=== PATIENT | female | born 1960 | race Hispanic/Latino ===

== ENCOUNTER 2022-03-06 20:30 | Inpatient (IN) | payer OTHER ==
[~2022-03-06] VITALS: Ht 162.6 cm; Wt 70.8 kg
[2022-03-06 21:02] LABS: BASOPHILS % (AUTO) 0.3 % (0.0-5.0); EOSINOPHILS % (AUTO) 0.7 % (0.0-8.0); HEMATOCRIT 34.1 % (36-48); LYMPHOCYTES % (AUTO) 8.5 % (21.0-51.0); MEAN CORPUSCULAR VOLUME 79.5 fL (79-99); MONOCYTES % (AUTO) 7.8 % (3.0-13.0); NEUTROPHILS % (AUTO) 81.1 % (40.0-77.0); PLATELET COUNT (AUTO) 126 K/uL (130-400); RED BLOOD CELL COUNT(AUTO) 4.29 MIL/uL (4.00-5.50); RED CELL DISTRIBUTION WIDTH 14.5 % (11.0-15.5); WHITE BLOOD COUNT (AUTO) 7.1 K/uL (4.8-10.8)
[2022-03-06 21:04] LABS: APPEARANCE,URINE Clear (CLEAR); BILIRUBIN,URINE Negative (NEGATIVE); COLOR,URINE Yellow (YELLOW); GLUCOSE, URINE (UA) 500 mg/dL (NEGATIVE); KETONES,URINE Negative (NEGATIVE); LEUKOCYTE ESTERASE ,URINE Trace (NEGATIVE); NITRATE,URINE Negative (NEGATIVE); OCCULT BLOOD,URINE Large (NEGATIVE); PROTEIN,URINE POS 2+ mg/dL (NEGATIVE)
[2022-03-06 21:13] LABS: BACTERIA,URINE Few /HPF (None Seen); MUCUS,URINE Few LPF (None Seen); RBC,URINE 26-50 /HPF (0-1); SQUAMOUS EPITHELIAL CELL,UR Few /HPF (0-2)
[2022-03-06 21:20] LABS: INR 1.01 (0.85-1.15)
[2022-03-06 21:21] LABS: CREATININE 0.9 mg/dL (0.5-1.5); POTASSIUM 3.9 mmol/L (3.5-5.1)
[2022-03-06 21:22] LABS: PARTIAL THROMBOPLASTIN TIME 27.9 SEC (26.3-35.5)
[2022-03-06 21:30] LABS: ALBUMIN 2.2 g/dL (3.5-5.0); BILIRUBIN,TOTAL 1.2 mg/dL (0.2-1.0); TOTAL PROTEIN, SERUM 7.3 g/dL (6.0-8.3)
[2022-03-06] MEDS ORDERED: PANTOPRAZOLE 40 MG/VIAL IVP ONE (22:00)
[2022-03-06] MEDS ORDERED: ONDANSETRON 4MG INJ IVP ONE (22:00)
[2022-03-06] MEDS ORDERED: ACETAMINOPHEN 500 MG TABLET PO ONE (22:00)
[2022-03-06] MEDS ORDERED: 0.9%NACL 1000ML 1,000 ML IV ONE ×2 (22:00→23:30)
[2022-03-06] MEDS ORDERED: FAMOTIDINE 20MG VIAL IV ONE (22:00)
[2022-03-06] MEDS ORDERED: ZOSYN 3.375GM +NS 50ML IV ONE (22:00)
[2022-03-06 22:12] LABS: ABG HCO3 23.1 mmol/L (21.0-28.0); ABG OXYGEN SATURATION 87.8 % (95.0-99.0); ABG PCO2 36 mmHg (32-45)
[2022-03-06 22:51] LABS: ABG BASE EXCESS -2.5 mmol/L (-2.0-3.0); ABG HCO3 22.1 mmol/L (21.0-28.0); ABG OXYGEN SATURATION 87.9 % (95.0-99.0); ABG PCO2 38 mmHg (32-45)
[2022-03-06] MEDS ORDERED: METOCLOPRAMIDE 10 MG/2 ML VIAL IM ONE (23:30)
[2022-03-06] MEDS ORDERED: INSULIN HUMULIN R 100 UNIT/ML 3ML IV ONE (23:45)
[2022-03-07] MEDS ORDERED: INSULIN HUMULIN R 100 UNIT/ML 3ML IV ONE
[2022-03-07] MEDS: 0.9%NACL 1000ML 1,000 ML IV SCH ×3 (02:00→12:17)
[2022-03-07] MEDS ORDERED: ACETAMINOPHEN 325 MG TAB PO PRN (02:00)
[2022-03-07] MEDS ORDERED: ONDANSETRON 4MG INJ IV PRN (02:00)
[2022-03-07] MEDS ORDERED: MORPHINE 2 MG SYG IV PRN (02:00)
[2022-03-07] MEDS ORDERED: SITA1TAB6 PO (04:50)
[2022-03-07] MEDS ORDERED: ASPI-1443 PO (04:50)
[2022-03-07] MEDS ORDERED: LOSA25TA41 PO ×2 (04:50→05:14)
[2022-03-07] MEDS ORDERED: BUSP15 PO (04:50)
[2022-03-07] MEDS ORDERED: ATOR40TA71 PO (05:14)
[2022-03-07] MEDS ORDERED: SERT-440 PO (05:14)
[2022-03-07 05:26] VITALS: BP 123/69
[2022-03-07] MEDS: ZOSYN 3.375GM+NS 50ML 50 ML IV SCH ×3 (05:34→21:19)
[2022-03-07 06:14] LABS: INR 1.05 (0.85-1.15); PROTHROMBIN TIME 11.4 SEC (9.6-11.6)
[2022-03-07 06:15] LABS: PARTIAL THROMBOPLASTIN TIME 26.5 SEC (26.3-35.5)
[2022-03-07 08:00] VITALS: BP 123/63
[2022-03-07] MEDS: FAMOTIDINE 20MG VIAL IV SCH ×2 (08:27→21:19)
[2022-03-07 12:00] VITALS: BP 141/75
[2022-03-07] MEDS ORDERED: GADOTERATE MEGLUMINE 10 MMOL/20 ML VIAL IV ONE (14:26)
[2022-03-07 16:00] VITALS: BP 141/63
[2022-03-07] MEDS: INSULIN HUMULIN R 100 UNIT/ML 3ML SQ SCH ×2 (16:38→21:15)
[2022-03-07 20:08] VITALS: BP 139/73
[2022-03-07] MEDS: SITAGLIPTIN PHOS PO SCH (21:00)
[2022-03-07] MEDS: METFORMIN HCL PO SCH (21:00)
[2022-03-07] MEDS: LOSARTAN 25 MG TABLET PO SCH (21:19)
[2022-03-07] MEDS: BUSPIRONE HCL 5 MG TABLET PO SCH (21:20)
[2022-03-07] MEDS: SERTRALINE HCL 50 MG TABLET PO SCH (21:20)
[2022-03-07] MEDS: ATORVASTATIN 40 MG TABLET PO SCH (21:20)
[2022-03-08 00:04] VITALS: BP 118/62
[2022-03-08 04:04] VITALS: BP 135/61
[2022-03-08 04:52] LABS: BASOPHILS % (AUTO) 0.3 % (0.0-5.0); EOSINOPHILS % (AUTO) 1.2 % (0.0-8.0); HEMATOCRIT 32.1 % (36-48); LYMPHOCYTES % (AUTO) 17.6 % (21.0-51.0); MEAN CORPUSCULAR HEMOGLOBIN 26.2 pg (27.0-33.0); MEAN CORPUSCULAR HGB CONC 33.3 g/dL (32.0-36.0); MEAN CORPUSCULAR VOLUME 78.7 fL (79-99); MONOCYTES % (AUTO) 8.7 % (3.0-13.0); NEUTROPHILS % (AUTO) 64.6 % (40.0-77.0); PLATELET COUNT (AUTO) 138 K/uL (130-400); RED BLOOD CELL COUNT(AUTO) 4.08 MIL/uL (4.00-5.50); RED CELL DISTRIBUTION WIDTH 14.8 % (11.0-15.5); WHITE BLOOD COUNT (AUTO) 7.3 K/uL (4.8-10.8)
[2022-03-08 05:05] LABS: ALBUMIN 1.8 g/dL (3.5-5.0); BILIRUBIN,TOTAL 1.1 mg/dL (0.2-1.0); CREATININE 0.8 mg/dL (0.5-1.5); POTASSIUM 3.3 mmol/L (3.5-5.1); TOTAL PROTEIN, SERUM 6.4 g/dL (6.0-8.3)
[2022-03-08] MEDS: INSULIN HUMULIN R 100 UNIT/ML 3ML SQ SCH ×4 (05:59→20:12)
[2022-03-08] MEDS: ZOSYN 3.375GM+NS 50ML 50 ML IV SCH ×3 (06:02→20:01)
[2022-03-08 06:14] LABS: ERYTHROCYTE SEDIMENTATION RATE 125 MM/HR (0-30)
[2022-03-08 08:00] VITALS: BP 134/72
[2022-03-08] MEDS: FAMOTIDINE 20MG VIAL IV SCH ×2 (08:41→20:01)
[2022-03-08] MEDS: BUSPIRONE HCL 5 MG TABLET PO SCH ×2 (08:41→20:00)
[2022-03-08] MEDS: ASPIRIN 81 MG EC TAB PO SCH (08:41)
[2022-03-08] MEDS: METFORMIN HCL PO SCH ×2 (09:00→20:09)
[2022-03-08] MEDS: SITAGLIPTIN PHOS PO SCH ×2 (09:00→20:09)
[2022-03-08] MEDS ORDERED: KCL 20 MEQ ERTAB PO SCH (11:00)
[2022-03-08 12:00] VITALS: BP 131/78
[2022-03-08] MEDS: ACETAMINOPHEN 325 MG TAB PO PRN ×2 (12:07→20:04)
[2022-03-08] MEDS: 0.9%NACL 1000ML 1,000 ML IV SCH ×2 (12:20→18:00)
[2022-03-08 16:00] VITALS: BP 140/75
[2022-03-08] MEDS: LOSARTAN 25 MG TABLET PO SCH (20:00)
[2022-03-08] MEDS: ATORVASTATIN 40 MG TABLET PO SCH (20:00)
[2022-03-08] MEDS: SERTRALINE HCL 50 MG TABLET PO SCH (20:00)
[2022-03-08 20:08] VITALS: BP 149/70
[2022-03-09] VITALS (8 sets, daily range): BP systolic 103–157; BP diastolic 42–80
[2022-03-09] MEDS: 0.9%NACL 1000ML 1,000 ML IV SCH ×2 (04:00→11:41)
[2022-03-09] MEDS: ZOSYN 3.375GM+NS 50ML 50 ML IV SCH ×3 (04:53→20:53)
[2022-03-09 05:05] LABS: BASOPHILS % (AUTO) 0.3 % (0.0-5.0); EOSINOPHILS % (AUTO) 1.7 % (0.0-8.0); HEMATOCRIT 35.5 % (36-48); LYMPHOCYTES % (AUTO) 16.5 % (21.0-51.0); MEAN CORPUSCULAR HEMOGLOBIN 25.7 pg (27.0-33.0); MEAN CORPUSCULAR HGB CONC 32.4 g/dL (32.0-36.0); MEAN CORPUSCULAR VOLUME 79.4 fL (79-99); NEUTROPHILS % (AUTO) 61.6 % (40.0-77.0); PLATELET COUNT (AUTO) 157 K/uL (130-400); RED BLOOD CELL COUNT(AUTO) 4.47 MIL/uL (4.00-5.50); RED CELL DISTRIBUTION WIDTH 15.1 % (11.0-15.5); WHITE BLOOD COUNT (AUTO) 7.5 K/uL (4.8-10.8)
[2022-03-09 05:21] LABS: ALBUMIN 2.1 g/dL (3.5-5.0); BILIRUBIN,TOTAL 0.7 mg/dL (0.2-1.0); CREATININE 0.8 mg/dL (0.5-1.5); MAGNESIUM 1.3 mg/dL (1.80-2.40); POTASSIUM 3.6 mmol/L (3.5-5.1); TOTAL PROTEIN, SERUM 7.4 g/dL (6.0-8.3)
[2022-03-09] MEDS ORDERED: MAGNESIUM 2GM PREMIX 50ML 50 ML IV ONE (05:42)
[2022-03-09] MEDS ORDERED: KCL 20 MEQ ERTAB PO PRN (06:00)
[2022-03-09] MEDS ORDERED: POTASSIUM CHLORIDE 20MEQ/100ML 100 ML IV PRN (06:00)
[2022-03-09] MEDS: INSULIN HUMULIN R 100 UNIT/ML 3ML SQ SCH ×4 (06:00→21:02)
[2022-03-09] MEDS ORDERED: LIDOCAINE HCL-MPF 1% 2ML VIAL IV PRN (06:00)
[2022-03-09] MEDS ORDERED: POTASSIUM CHLORIDE 10% ELIXIR 20 MEQ/15 ML UDCUP PO PRN (06:00)
[2022-03-09] MEDS ORDERED: MAGNESIUM 2GM PREMIX 50ML 50 ML IV PRN (06:00)
[2022-03-09] MEDS: SITAGLIPTIN PHOS PO SCH ×2 (08:03→20:53)
[2022-03-09] MEDS: ASPIRIN 81 MG EC TAB PO SCH (08:03)
[2022-03-09] MEDS: METFORMIN HCL PO SCH ×2 (08:03→20:53)
[2022-03-09] MEDS: BUSPIRONE HCL 5 MG TABLET PO SCH ×2 (08:03→20:46)
[2022-03-09] MEDS: FAMOTIDINE 20MG VIAL IV SCH ×2 (08:03→20:46)
[2022-03-09] MEDS: LOSARTAN 25 MG TABLET PO SCH (20:46)
[2022-03-09] MEDS: ATORVASTATIN 40 MG TABLET PO SCH (20:46)
[2022-03-09] MEDS: SERTRALINE HCL 50 MG TABLET PO SCH (20:46)
[2022-03-09] MEDS: ACETAMINOPHEN 325 MG TAB PO PRN (20:53)
[2022-03-10 03:22] VITALS: BP 105/63
[2022-03-10 04:12] LABS: BASOPHILS % (AUTO) 0.4 % (0.0-5.0); EOSINOPHILS % (AUTO) 1.6 % (0.0-8.0); HEMATOCRIT 34.5 % (36-48); MEAN CORPUSCULAR HEMOGLOBIN 25.8 pg (27.0-33.0); MEAN CORPUSCULAR HGB CONC 32.8 g/dL (32.0-36.0); MEAN CORPUSCULAR VOLUME 78.8 fL (79-99); MONOCYTES % (AUTO) 7.2 % (3.0-13.0); NEUTROPHILS % (AUTO) 61.5 % (40.0-77.0); PLATELET COUNT (AUTO) 191 K/uL (130-400); RED BLOOD CELL COUNT(AUTO) 4.38 MIL/uL (4.00-5.50); RED CELL DISTRIBUTION WIDTH 14.8 % (11.0-15.5); WHITE BLOOD COUNT (AUTO) 8.1 K/uL (4.8-10.8)
[2022-03-10 04:24] LABS: ALBUMIN 2.1 g/dL (3.5-5.0); BILIRUBIN,TOTAL 0.7 mg/dL (0.2-1.0); CREATININE 0.7 mg/dL (0.5-1.5); MAGNESIUM 2.2 mg/dL (1.80-2.40); POTASSIUM 3.9 mmol/L (3.5-5.1); TOTAL PROTEIN, SERUM 7.3 g/dL (6.0-8.3)
[2022-03-10] MEDS: ZOSYN 3.375GM+NS 50ML 50 ML IV SCH ×2 (04:53→13:05)
[2022-03-10] MEDS: INSULIN HUMULIN R 100 UNIT/ML 3ML SQ SCH ×4 (06:50→21:13)
[2022-03-10 08:15] VITALS: BP 140/71
[2022-03-10] MEDS: FAMOTIDINE 20MG VIAL IV SCH ×2 (08:55→20:55)
[2022-03-10] MEDS: ASPIRIN 81 MG EC TAB PO SCH (08:55)
[2022-03-10] MEDS: METFORMIN HCL PO SCH ×2 (08:56→20:55)
[2022-03-10] MEDS: BUSPIRONE HCL 5 MG TABLET PO SCH ×2 (08:56→20:54)
[2022-03-10] MEDS: 0.9%NACL 1000ML 1,000 ML IV SCH ×3 (08:56→21:13)
[2022-03-10] MEDS: SITAGLIPTIN PHOS PO SCH ×2 (08:56→20:55)
[2022-03-10 11:45] VITALS: BP 147/58
[2022-03-10 16:25] VITALS: BP 148/64
[2022-03-10] MEDS: MEROPENEM 1 GM VIAL IVP SCH (16:29)
[2022-03-10 16:39] LABS: INR 1.05 (0.85-1.15); PROTHROMBIN TIME 11.4 SEC (9.6-11.6)
[2022-03-10 19:55] VITALS: BP 151/79
[2022-03-10] MEDS: SERTRALINE HCL 50 MG TABLET PO SCH (20:54)
[2022-03-10] MEDS: ATORVASTATIN 40 MG TABLET PO SCH (20:54)
[2022-03-10] MEDS: LOSARTAN 25 MG TABLET PO SCH (20:54)
[2022-03-10] MEDS: ACETAMINOPHEN 325 MG TAB PO PRN (21:25)
[2022-03-10 22:51] VITALS: BP 146/73
[2022-03-11] MEDS: MEROPENEM 1 GM VIAL IVP SCH ×3 (00:58→16:44)
[2022-03-11 03:30] VITALS: BP 162/73
[2022-03-11] MEDS: INSULIN HUMULIN R 100 UNIT/ML 3ML SQ SCH ×4 (06:36→20:01)
[2022-03-11 07:35] VITALS: BP 134/60
[2022-03-11] MEDS: SITAGLIPTIN PHOS PO SCH ×2 (09:00→19:58)
[2022-03-11] MEDS: METFORMIN HCL PO SCH ×2 (09:00→19:58)
[2022-03-11] MEDS: BUSPIRONE HCL 5 MG TABLET PO SCH ×2 (09:38→19:57)
[2022-03-11] MEDS: FAMOTIDINE 20MG VIAL IV SCH ×2 (09:38→19:57)
[2022-03-11] MEDS: ASPIRIN 81 MG EC TAB PO SCH (09:38)
[2022-03-11] MEDS: 0.9%NACL 1000ML 1,000 ML IV SCH ×2 (09:40→16:44)
[2022-03-11 11:13] VITALS: BP 143/71
[2022-03-11 16:14] VITALS: BP 137/57
[2022-03-11] MEDS: ATORVASTATIN 40 MG TABLET PO SCH (19:57)
[2022-03-11] MEDS: SERTRALINE HCL 50 MG TABLET PO SCH (19:57)
[2022-03-11] MEDS: LOSARTAN 25 MG TABLET PO SCH (19:57)
[2022-03-11 20:07] VITALS: BP 137/83
[2022-03-11] MEDS ORDERED: 0.9%NACL 1000ML 1,000 ML IV SCH (23:30)
[2022-03-11 23:36] VITALS: BP 157/72
[2022-03-12] MEDS: MEROPENEM 1 GM VIAL IVP SCH ×3 (00:05→16:36)
[2022-03-12 04:08] VITALS: BP 149/74
[2022-03-12 05:04] LABS: HEMATOCRIT 33.4 % (36-48); MEAN CORPUSCULAR HEMOGLOBIN 25.9 pg (27.0-33.0); MEAN CORPUSCULAR VOLUME 80.9 fL (79-99); RED BLOOD CELL COUNT(AUTO) 4.13 MIL/uL (4.00-5.50); RED CELL DISTRIBUTION WIDTH 14.7 % (11.0-15.5); WHITE BLOOD COUNT (AUTO) 8.5 K/uL (4.8-10.8)
[2022-03-12 05:13] LABS: CREATININE 0.7 mg/dL (0.5-1.5); POTASSIUM 3.9 mmol/L (3.5-5.1)
[2022-03-12] MEDS: INSULIN HUMULIN R 100 UNIT/ML 3ML SQ SCH ×4 (07:30→20:08)
[2022-03-12 07:51] VITALS: BP 119/75
[2022-03-12] MEDS: BUSPIRONE HCL 5 MG TABLET PO SCH ×2 (08:33→20:03)
[2022-03-12] MEDS: ASPIRIN 81 MG EC TAB PO SCH (08:33)
[2022-03-12] MEDS: FAMOTIDINE 20MG VIAL IV SCH ×2 (08:33→20:02)
[2022-03-12] MEDS: SITAGLIPTIN PHOS PO SCH ×2 (08:34→20:08)
[2022-03-12] MEDS: METFORMIN HCL PO SCH ×2 (08:34→20:08)
[2022-03-12 11:34] VITALS: BP 134/76
[2022-03-12 16:30] VITALS: BP 164/73
[2022-03-12] MEDS: 0.9%NACL 1000ML 1,000 ML IV SCH (16:39)
[2022-03-12 19:05] VITALS: BP 154/57
[2022-03-12] MEDS: LOSARTAN 25 MG TABLET PO SCH (20:02)
[2022-03-12] MEDS: ATORVASTATIN 40 MG TABLET PO SCH (20:02)
[2022-03-12] MEDS: SERTRALINE HCL 50 MG TABLET PO SCH (20:03)
[2022-03-12 23:51] VITALS: BP 133/69
[2022-03-13] MEDS: MEROPENEM 1 GM VIAL IVP SCH ×2 (00:07→08:43)
[2022-03-13 04:21] VITALS: BP 146/73
[2022-03-13] MEDS: 0.9%NACL 1000ML 1,000 ML IV SCH (05:13)
[2022-03-13] MEDS: INSULIN HUMULIN R 100 UNIT/ML 3ML SQ SCH (06:23)
[2022-03-13 08:26] VITALS: BP 138/73
[2022-03-13] MEDS: BUSPIRONE HCL 5 MG TABLET PO SCH (08:42)
[2022-03-13] MEDS: ASPIRIN 81 MG EC TAB PO SCH (08:42)
[2022-03-13] MEDS: FAMOTIDINE 20MG VIAL IV SCH (08:43)
[2022-03-13] MEDS: METFORMIN HCL PO SCH (09:00)
[2022-03-13] MEDS: SITAGLIPTIN PHOS PO SCH (09:00)
[2022-03-13 11:12] VITALS: BP 121/65
== END 2022-03-13 15:53 | disposition home or self-care (01) | DRG 872 ==
LOC: EDH 20:30 → UNDOADMOB 23:33 → OBSVTOIN 23:33 → INTOOBSV 23:33 → EDHIP 23:33 → OBSVTOIN 03-07 01:58 → EDHIP 03-07 01:58 → 4BH 03-07 05:08
PROVIDERS: ADMIT Hospitalist; ATTEND Hospitalist
PROC: 02HV33Z Insertion of Infusion Device into Superior Vena Cava, Percutaneous Approach (ICD-10-PCS; principal; 2022-03-11)
DX: A41.51 Sepsis due to Escherichia coli [E. coli] (principal); N39.0 Urinary tract infection, site not specified; N12 Tubulo-interstitial nephritis, not specified as acute or chronic; Z16.24 Resistance to multiple antibiotics; Z16.12 Extended spectrum beta lactamase (ESBL) resistance; A41.50 Gram-negative sepsis, unspecified; I10 Essential (primary) hypertension; E11.65 Type 2 diabetes mellitus with hyperglycemia; Z20.822 Contact with and (suspected) exposure to COVID-19; E78.1 Pure hyperglyceridemia; Z90.710 Acquired absence of both cervix and uterus; E78.00 Pure hypercholesterolemia, unspecified; Z83.3 Family history of diabetes mellitus; E78.5 Hyperlipidemia, unspecified; Z87.440 Personal history of urinary (tract) infections; F32.A Depression, unspecified; R53.81 Other malaise
CPT/HCPCS: 36415; 36600; 71045; 74183; 76705; 78227; 80048; 80053; 81001; 82010; 82435; 82550; 82803; 82947; 82948; 83605; 83690; 83735; 84132; 84145; 84295; 84484; 85018; 85025; 85027; 85610; 85651; 85730; 87040; 87077; 87088; 87186; 87635; 87804; 93005; A9537; C1894; C9113; C9803; G0378; J1815; J2185; J2405; J2543; J2765; J3475; J3490; J7030

== ENCOUNTER 2024-09-10 17:49 | Emergency (ER) | payer OTHER ==
[~2024-09-10] VITALS: Ht 154.9 cm; Wt 69.9 kg
[~2024-09-10 17:49] MED LIST: ASPI-1443 PO; ATOR40TA71 PO; BUSP15 PO; LOSA25TA41 PO; SERT-440 PO; SITA1TAB6 PO
[2024-09-10 18:26] LABS: EOSINOPHILS # (AUTO) 0.01 K/uL (0.00-0.70); EOSINOPHILS % (AUTO) 0.2 % (0.0-8.0); HEMATOCRIT 37.6 % (36-48); IMMATURE GRANULOCYTE ABSOLUTE 0.03 K/uL (0-1); LYMPHOCYTES # (AUTO) 0.4 K/uL (1.0-4.8); LYMPHOCYTES % (AUTO) 5.9 % (21.0-51.0); MEAN CORPUSCULAR HEMOGLOBIN 27.6 pg (27.0-33.0); MEAN CORPUSCULAR VOLUME 81.2 fL (79-99); MONOCYTES # (AUTO) 0.5 K/uL (0.1-1.0); MONOCYTES % (AUTO) 7.9 % (3.0-13.0); NEUTROPHILS # (AUTO) 5.2 K/uL (1.8-7.7); NEUTROPHILS % (AUTO) 85.5 % (40.0-77.0); PLATELET COUNT (AUTO) 99 K/uL (130-400); RED BLOOD CELL COUNT(AUTO) 4.63 MIL/uL (4.00-5.50); RED CELL DISTRIBUTION WIDTH 12.9 % (11.0-15.5); WHITE BLOOD COUNT (AUTO) 6.1 K/uL (4.8-10.8)
[2024-09-10 18:39] LABS: CREATININE 0.8 mg/dL (0.5-1.0); POTASSIUM 3.4 mmol/L (3.5-5.1)
[2024-09-10 18:54] LABS: SARS-CoV-2, RNA, NAAT NEGATIVE SARS CoV-2 (NEGATIVE)
[2024-09-10 19:02] LABS: INFLUENZA TYPE A Negative For Type A (NEGATIVE); INFLUENZA TYPE B Negative For Type B (NEGATIVE)
[2024-09-10 19:07] LABS: ALBUMIN 3.3 g/dL (3.5-5.0); BILIRUBIN,DIRECT 0.5 mg/dL (0.0-0.3); BILIRUBIN,TOTAL 1.7 mg/dL (0.2-1.0); TOTAL PROTEIN, SERUM 7.5 g/dL (6.0-8.3)
[2024-09-10] MEDS: 0.9%NACL 1000ML 1,000 ML IV ONE (19:32)
[2024-09-10] MEDS: acetaMINOPHEN 500 MG TABLET PO ONE (19:34)
[2024-09-10 19:49] LABS: APPEARANCE,URINE CLEAR (CLEAR); BILIRUBIN,URINE NEGATIVE (NEGATIVE); COLOR,URINE LIGHT-YELLOW (YELLOW); GLUCOSE, URINE (UA) 50 mg/dL (NEGATIVE); KETONES,URINE 5 mg/dL (NEGATIVE); LEUKOCYTE ESTERASE ,URINE 25 Leu/uL (NEGATIVE); NITRATE,URINE 2+ (NEGATIVE); OCCULT BLOOD,URINE SMALL (NEGATIVE); PH,URINE 5.5 (5.0-8.0); PROTEIN,URINE 20 mg/dL (NEGATIVE); UROBILINOGEN,URINE 0.2 mg/dL (0.2-1.0)
[2024-09-10 19:50] LABS: ADD UA MICROSCOPIC YES
[2024-09-10 19:55] LABS: BACTERIA,URINE RARE /HPF (None Seen); MUCUS,URINE RARE LPF (None Seen); RBC,URINE 0-1 /HPF (0-1)
[2024-09-10] MEDS: ketOROlac 15MG/ML VIAL (15MG/ML) IV ONE (20:17)
[2024-09-10] MEDS: cefTRIAXone 1G VIAL IVPB ONE (20:40)
[2024-09-10 20:56] VITALS: TEMP 99.8
[2024-09-10] MEDS ORDERED: NITR100C4 PO (21:43)
[2024-09-10 21:47] VITALS: BP 144/72; PULSE 74; RESP 20; TEMP 98.3; O2SAT 96
[2024-09-10] MEDS: PoTASSium BIcarbonate/CIT AC 25 MEQ TABLET.EFF PO ONE (22:02)
== END 2024-09-10 22:12 | disposition home or self-care (01) ==
LOC: EDH 17:49
DX: N39.0 Urinary tract infection, site not specified (principal); E86.9 Volume depletion, unspecified; R50.9 Fever, unspecified; E87.6 Hypokalemia; R11.2 Nausea with vomiting, unspecified; E11.9 Type 2 diabetes mellitus without complications; I10 Essential (primary) hypertension; Z79.82 Long term (current) use of aspirin; Z79.84 Long term (current) use of oral hypoglycemic drugs; Z90.710 Acquired absence of both cervix and uterus; Z20.822 Contact with and (suspected) exposure to COVID-19
CPT/HCPCS: 99285; 96365; 71045; 87635; 96361; 96375; 82550; 80076; 84484; 80048; 85025; 87040 ×2; 87086 ×2; 87186; 87804 ×2; 83605; 81001; 36415; 93005; J7030; J0696; J1885